=== PATIENT | female | born 1950 | race Hispanic/Latino ===

== ENCOUNTER → 2017-12-02 | Outpatient (CLI) | payer MEDICARE ==
[~2017-12-02] MED LIST: ALBUTEROL1 GM; ASA81 MG; Z.0.ADVAIR 100-501 E; Z.0.CARVEDILOL25 MG; Z.0.PLAVIX75 MG PO; Z.0.PRAVACHOL20 MG; Z.0.TRICOR48 MG
--- NOTE | 2017-12-02 16:02 | Diagnostic Imaging Report ---
Exam: Brain MRI without IV contrast History: Left-sided facial pain, disorder of trigeminal nerve. Comparison studies: None Technique: Sagittal T1 FLAIR, axial DWI, axial T2 FLAIR, axial T2 FS, axial coronal T1 FS, and axial 3-D T2 through the level of the trigeminal nerves with coronal and sagittal reformats Intravenous contrast: None Findings: Scalp: Normal normal in signal. No masses. Bone marrow: Normal in signal intensity. Brain sulci: Appropriate for age. Ventricles: Normal in size. No hydrocephalus. Extra axial spaces: No mass, no fluid collection. Parenchyma: No mass, hemorrhage or acute ischemia. There is a small chronic lacunar infarct in the right frontal ellsworth radiata. A few scattered T2 FLAIR hyperintense foci in the supratentorial white matter are nonspecific but may reflect chronic microvascular ischemic changes. Trigeminal nerves: Evaluation is somewhat limited in the absence of IV contrast. No mass or gross abnormalities along the cisternal or cavernous segments of the bilateral trigeminal nerves. No vascular loop is identified at the root entry injuries or along the course of the left cisternal trigeminal nerve to account for left-sided facial pain. Suprasellar region: No abnormalities. Craniocervical junction: Patent foramen magnum. No Chiari malformation . Vessels: Normal flow-voids in the arteries and sinuses. Incidental findings: Minimal inflammatory changes or small fluid at the left mastoid tip. IMPRESSION: 1. Mild supratentorial chronic microvascular ischemic changes. 2. Small chronic right ellsworth radiata lacunar infarct. 3. No additional intracranial abnormalities. Signed by: Dr. Mark Mtz M.D. on 12/02/2017 3:59 PM
== END ==
LOC: MRI 11-18 14:02
PROVIDERS: ATTEND Family Medicine
DX: G50.8 Other disorders of trigeminal nerve (principal)
CPT/HCPCS: 70551

== ENCOUNTER 2019-07-26 00:29 | Emergency (ER) | payer MEDICARE ==
[~2019-07-26] VITALS: Ht 154.9 cm; Wt 63.5 kg
--- OUTSIDE RECORDS SUMMARY | 2019-07-26 00:31 | XMS REPORT ---
[facility] Address Unknown Phone Unavailable Care Team Providers Care Steel Chipper Name Role Phone FAHAD BURGER Unavailable Unavailable Problems This patient has no known problems. Allergies, Adverse Reactions, Alerts This patient has no known allergies or adverse reactions. Medications This patient has no known medications. Results Test Description Test Time Test Comments Text Results Atomic Results Result Comments MRI BRAIN WO 2017-12-02 15:50:00 [facility] [address] [address] Patient Name: SELENA CHAVIRA MR #: [id number] : 1950 Age/Sex: 66/F Req #: [id number] [facility] Physician: Ordered by: FAHAD BURGER MD Report #: [id number] Location: MRI Room/Bed: Procedure: [id number] MRI/MRI BRAIN WO Exam Date: Exam Time: REPORT STATUS: Signed Exam: Brain MRI without IV contrast History: Left-sided facial pain, disorder of trigeminal nerve. Comparison studies: None Technique: Sagittal T1 FLAIR, axial DWI, axial T2 FLAIR, axial T2 FS, axial coronal T1 FS, and axial 3-D T2 through the level of the trigeminal nerves with coronal and sagittal reformats Intravenous contrast: None Findings: Scalp: Normal normal in signal. No masses. Bone marrow: Normal in signal intensity. Brain sulci: Appropriate for age. Ventricles: Normal in size. No hydrocephalus. Extra axial spaces: No mass, no fluid collection. Parenchyma: No mass, hemorrhage or acute ischemia. There is a small chronic lacunar infarct in the right frontal ellsworth radiata. A few scattered T2 FLAIR hyperintense foci in the supratentorial white matter are nonspecific but may reflect chronic m icrovascular ischemic changes. Trigeminal nerves: Evaluation is somewhat limited in the absence of IV contrast. No mass or gross abnormalities along the cisternal or cavernous segments of the bilateral trigeminal nerves. No vascular loop is identified at the root entry injuries or along the course of the left cisternal trigeminal nerve to account for left-sided facial pain. Suprasellar region: No abnormalities. Craniocervical junction: Patent foramen magnum. No Chiari malformation . Vessels: Normal flow-voids in the arteries and sinuses. Incidental findings: Minimal inflammatory changes or small fluid at the left mastoid tip. IMPRESSION: 1. Mild supratentorial chronic microvascular ischemic changes. 2. Small chronic right ellsworth radiata lacunar infarct. 3. No additional intracranial abnormalities. Signed by: Dr. Nikita Mtz M.D. on 12/02/2017 3:59 PM Dictated By: NIKITA MTZ MD [id number] Transcribed By: JAMAL on 12/02/17 [id number] COPY TO: FAHAD BURGER MD
[2019-07-26] MEDS ORDERED: ALBUTEROL/IPRATROPIUM 3 ML NEB ONE (00:54)
[2019-07-26] MEDS ORDERED: ONDANSETRON HCL 4 MG ORAL DISINTEGRATING TAB ONE (00:56)
[2019-07-26] MEDS ORDERED: ONDANSETRON HCL 4 MG ORAL DISINTEGRATING TAB PO ONE (01:30)
[2019-07-26] MEDS ORDERED: ALBUTEROL/IPRATROPIUM 3 ML NEB NEB ONE (01:30)
[2019-07-26] MEDS ORDERED: METHYLPREDNISOLONE SOD SUCC 125 MG/2ML VIAL IM ONE (01:30)
[2019-07-26] MEDS ORDERED: METHYLPREDNISOLONE SOD SUCC 125 MG/2ML VIAL ONE (01:33)
--- NOTE | 2019-07-26 01:34 | Diagnostic Imaging Report ---
EXAMINATION: Chest PA and lateral views INDICATION: SHORTNESS OF BREATH/ASTHMA COMPARISON: None FINDINGS: TUBES and LINES: None. LUNGS: Lungs are mildly hyperinflated. Mild diffuse coarsening of the pulmonary interstitium. There is no evidence of pneumonia or pulmonary edema. PLEURA: No pleural effusion or pneumothorax. HEART AND MEDIASTINUM: The cardiomediastinal silhouette is unremarkable. Mediastinal clips. Coronary stents. BONES AND SOFT TISSUES: No acute osseous lesion. Soft tissues are unremarkable. UPPER ABDOMEN: No free air under the diaphragm. Cholecystectomy clips. IMPRESSION: No acute thoracic abnormality. Signed by: Dr. Hannah Kapadia M.D. on 07/26/2019 1:32 AM
== END 2019-07-26 01:53 | disposition home or self-care (01) ==
LOC: FSED 00:29
DX: R05 Cough (principal); J98.01 Acute bronchospasm; Z86.69 Personal history of other diseases of the nervous system and sense organs
CPT/HCPCS: 71046; 99283; J2930; Q0162